=== PATIENT | male | born 1985 | race Caucasian/White ===

== ENCOUNTER 2022-10-30 15:26 | Outpatient (CLI) | payer SELFPAY ==
[2022-10-30 21:48] LABS: Albumin* 4.4 g/dL (3.3-5.0)
[2022-10-30 21:49] LABS: Chloride* 107 mmol/L (96-114); Potassium* 4.2 mmol/L (3.6-5.1); Sodium* 141 mmol/L (135-149)
[2022-10-30 21:51] LABS: Carbon Dioxide* 28 mmol/L (20-32); Creatinine* 0.8 mg/dL (0.5-1.5); Estimated Glomerular Filt Rate 116 ml/min
[2022-10-30 21:52] LABS: Alanine Aminotransferase* 37 U/L (4-50); Alkaline Phosphatase* 54 U/L (40-150); Aspartate Amino Transferase* 34 U/L (12-35); Bilirubin Direct* 0.3 mg/dL (0.0-0.5); Bilirubin Total* 0.6 mg/dL (0.1-1.5); Blood Urea Nitrogen* 10 mg/dL (5-24); Calcium* 9.3 mg/dL (8.4-10.6); Glucose* 104 mg/dL (60-115)
== END 2022-10-30 15:27 | disposition home or self-care (01) ==
PROVIDERS: PCP Emergency Medicine; Visit Provider Emergency Medicine
DX: Z00.00 Encounter for general adult medical examination without abnormal findings (principal); E66.8 Other obesity; R03.0 Elevated blood-pressure reading, without diagnosis of hypertension; K06.8 Other specified disorders of gingiva and edentulous alveolar ridge
CPT/HCPCS: 80048; 80076

== ENCOUNTER 2022-12-10 19:33 | Outpatient (CLI) | payer OTHER, SELFPAY ==
--- NOTE | 2022-12-23 12:44 | W.PM.SLEEP ---
Sleep Study Details Details Interpreting Provider: Yohana Date of Sleep Study: 12/10/22 Sleep Study Details: STUDY TYPE:? Home ? BMI:? 39.3 ORDERING PROVIDER:Wilman Muller INDICATION:? Concerns about sleep apnea ? SLEEP SUMMARY:? 246.9 minutes monitored RESPIRATORY SUMMARY: AHI 10.7, supine AHI 33.5, prone 5.5, left lateral 10.3 Low oxygen 77 32.7% of study oxygen less than 90%, 18.2% of study less than 85%, 0.1% less than 80% Snoring 7.9% PERIODIC LIMB MOVEMENTS OF SLEEP:? Not recorded CARDIAC:? Range 26-188, mean 68.7 IMPRESSION:? Tachycardia and bradycardia during the study further evaluation is indicated Oxygen saturation below 90% nearly 1/3 of the study further pulmonary evaluation indicated Mild obstructive sleep apnea with supine position dependency. Treatment options include CPAP versus dental appliance, weight loss is recommended. RECOMMENDATION: []
== END 2022-12-10 19:34 | disposition home or self-care (01) ==
PROVIDERS: PCP Emergency Medicine; Visit Provider Otolaryngology
DX: G47.33 Obstructive sleep apnea (adult) (pediatric) (principal); R00.0 Tachycardia, unspecified; R00.1 Bradycardia, unspecified
CPT/HCPCS: 95806

== ENCOUNTER 2022-12-18 15:54 | Outpatient (CLI) | payer OTHER, SELFPAY | END 2022-12-18 15:55 | disposition home or self-care (01) | PROVIDERS: PCP Emergency Medicine; Visit Provider Emergency Medicine | DX: R04.2 Hemoptysis (principal) | CPT/HCPCS: 85610; 85730; 86480 ==

== ENCOUNTER 2022-12-25 10:11 | Outpatient (CLI) | payer OTHER, SELFPAY ==
--- NOTE | 2022-12-25 10:00 | CRLHL7_ITS ---
For Patients: As a result of the Century Cures Act, medical imaging exams and procedure reports are released immediately into your electronic medical record. You may view this report before your referring provider. If you have questions, please contact your health care provider. INDICATION: Hemoptysis. TECHNIQUE: Contrast-enhanced chest CT. 75 cc nonionic Isovue-370 administered. COMPARISON: Correlation is made with a two-view chest x-ray November 26, 2022. FINDINGS: 1.3 cm nodule along the left hemidiaphragm image 66 series 3 and image 64 series 4. This is potentially part of the diaphragm. Slightly above this also in the left lower lobe posterior laterally is a faint triangular shaped ground-glass opacity. Both lungs are otherwise clear. No lymphadenopathy. Normal caliber thoracic aorta. The trachea and mainstem bronchi are patent and clear. Images of the upper abdomen demonstrate normal adrenal glands. No splenomegaly. Mild hepatic fatty infiltration. The included skeleton is within normal limits. IMPRESSION: 1. 1.3 cm nodular density along the left hemidiaphragm nonspecific. Faint ground-glass nodule inferolateral left lower lobe of the lung may be postinfectious or postinflammatory. 2. A short interval followup chest CT in 3 months is suggested. 3. No lymphadenopathy. No effusions. Hepatic fatty infiltration. Please note that all CT scans at this facility use dose modulation, iterative reconstruction, and/or weight-based dosing when appropriate to reduce radiation dose to as low as reasonably achievable. Dictated by Lul Metz MD @ 12/25/2022 3:42:38 PM (Electronically Signed)
== END 2022-12-25 10:12 | disposition home or self-care (01) ==
PROVIDERS: PCP Emergency Medicine; Visit Provider Emergency Medicine
DX: R04.2 Hemoptysis (principal); R91.1 Solitary pulmonary nodule
CPT/HCPCS: 71260; Q9967

== ENCOUNTER 2023-01-05 10:16 | Outpatient (CLI) | payer OTHER, SELFPAY | END 2023-01-05 10:17 | disposition home or self-care (01) | PROVIDERS: PCP Emergency Medicine; Visit Provider Emergency Medicine | DX: R00.0 Tachycardia, unspecified (principal) | CPT/HCPCS: 93306 ==